=== PATIENT | male | born 1950 | race African-American/Black ===

== ENCOUNTER 2017-10-26 23:49 | Emergency (ER) | payer MEDICARE ==
[~2017-10-26] VITALS: Ht 175.3 cm; Wt 74.8 kg
[2017-10-27 00:07] LABS: BASOPHILS % 0.2 % (0.0-1.0); HEMATOCRIT 38.6 % (38.2-49.6); HEMOGLOBIN 13.3 g/dL (14.0-18.0); LYMPHOCYTES # (AUTO) 0.8 (1.0-3.2); LYMPHOCYTES % 6.2 % (18.0-39.1); MEAN CORPUSCULAR HEMOGLOBIN 28.1 pg (28-32); MEAN CORPUSCULAR HGB CONC 34.5 g/dL (31-35); MEAN CORPUSCULAR VOLUME 81.6 fL (81-99); MONOCYTES # (AUTO) 0.5 (0.2-0.8); MONOCYTES % 4.2 % (4.4-11.3); NEUTROPHILS # (AUTO) 11.2 (2.1-6.9); NEUTROPHILS % 89.1 % (38.7-80.0); PLATELET COUNT 297 x10e3/uL (140-360); RED BLOOD COUNT 4.73 x10e6/uL (4.3-5.7); RED CELL DISTRIBUTION WIDTH 14.2 % (11.7-14.4)
[2017-10-27] MEDS ORDERED: DIOVAN HCT 1601 EAC1 PO (00:13)
[2017-10-27] MEDS ORDERED: COREG12.5 MG PO (00:13)
[2017-10-27] MEDS ORDERED: NIFEDIPINE ER30 M1 PO (00:13)
[2017-10-27] MEDS ORDERED: SYNTHROID75 MCG PO (00:13)
[2017-10-27] MEDS ORDERED: CHLORDIAZEPOX-1 EACH PO (00:13)
[2017-10-27] MEDS ORDERED: PREVACID15 MG PO (00:13)
[2017-10-27 00:28] LABS: ALANINE AMINOTRANSFERASE 12 IU/L (0-55); ALBUMIN 3.7 g/dL (3.5-5.0); ALBUMIN/GLOBULIN RATIO 0.9 (0.8-2.0); ALKALINE PHOSPHATASE 70 IU/L (40-150); ANION GAP 14.3 mmol/L (8-16); BLOOD UREA NITROGEN 8 mg/dL (7-26); BUN/CREATININE RATIO 8 (6-25); CALCIUM 9.4 mg/dL (8.4-10.2); CARBON DIOXIDE 27 mmol/L (22-29); CHLORIDE 99 mmol/L (98-107); CREATININE, SERUM 0.99 mg/dL (0.72-1.25); EST GLOMERULAR FILTRATION RATE > 60 ML/MIN (60-); GLUCOSE 159 mg/dL (74-118); POTASSIUM 3.3 mmol/L (3.5-5.1); SODIUM 137 mmol/L (136-145)
--- NOTE | 2017-10-27 00:39 | Diagnostic Imaging Report ---
EXAMINATION: CHEST SINGLE (PORTABLE) INDICATION: Breathing problems, coughing COMPARISON: None FINDINGS: TUBES and LINES: None. LUNGS: Lungs are well inflated. Minimal left lower lobe retrocardiac opacity compatible with atelectasis versus pneumonia. PLEURA: No pleural effusion or pneumothorax. HEART AND MEDIASTINUM: The cardiomediastinal silhouette is unremarkable. BONES AND SOFT TISSUES: No acute osseous lesion. Soft tissues are unremarkable. UPPER ABDOMEN: No free air under the diaphragm. IMPRESSION: 1. Left lower lobe retrocardiac opacity is inconspicuous on single portable AP view. PA and lateral view of the chest in upright position is recommended 2. Differential diagnosis may include atelectasis or pneumonia. Signed by: Dr. Jarod Hsu M.D. on 10/27/2017 12:36 AM
[2017-10-27] MEDS ORDERED: POTASSIUM CHLORIDE 20 MEQ TAB CR PO STA (01:35)
[2017-10-27] MEDS ORDERED: ACETAMINOPHEN/CODEINE 300MG - 30MG TAB PO ONE (01:45)
--- NOTE | 2017-10-27 02:24 | Diagnostic Imaging Report ---
EXAM: CT Chest WITHOUT contrast 10/27/2017 1:25 AM INDICATION: Pneumonia COMPARISON: None TECHNIQUE: Chest was scanned utilizing a multidetector helical scanner from the lung apex through the level of the adrenal glands without administration of IV contrast. Absence of intravenous contrast decreases sensitivity for detection of lymphadenopathy and vascular pathology. Coronal and sagittal reformations were obtained. Routine protocol was performed. IV CONTRAST: None RADIATION DOSE: Total DLP: 477.65 mGy*cm Estimated effective dose: (DLP x 0.014 x size factor) mSv COMPLICATIONS: None FINDINGS: LINES/ TUBES: None. LUNGS AND AIRWAYS: There are bronchiectasis at the lung bases. Within the most posterior segment of the bilateral lower lobe some of the bronchiectasis are filled with fluid and result in obstructive pneumonitis which can be inflammatory or infectious. PLEURA: The pleural spaces are clear. HEART AND MEDIASTINUM: The thyroid gland is normal. No mediastinal, hilar or axillary lymphadenopathy. The heart is normal in size.. There is no pericardial effusion. UPPER ABDOMEN: Limited non-contrast views of the upper abdomen show no abnormality within the visualized liver, spleen, pancreas, or kidneys. The adrenal glands are normal. BONES: There are degenerative changes in the thoracic spine. SOFT TISSUES: Unremarkable. IMPRESSION: Findings in the bilateral lower lobes left greater than right are suspicious for dependent obstructive pneumonitis from lower lobe bronchiectasis. These findings can be inflammatory or infectious. Signed by: Dr. Jarod Hsu M.D. on 10/27/2017 2:21 AM
[2017-10-27] MEDS ORDERED: AZITHROMYCIN 500MG/NS 250 ML 250 ML IV STA (02:34)
[2017-10-27] MEDS ORDERED: CEFTRIAXONE SOD 1 GM VIAL IV SCH (02:45)
== END 2017-10-27 03:52 | disposition home or self-care (01) ==
LOC: ER 23:49
DX: R50.9 Fever, unspecified (principal); R05 Cough; J15.9 Unspecified bacterial pneumonia; F17.210 Nicotine dependence, cigarettes, uncomplicated
CPT/HCPCS: 36415; 71045; 71250; 80053; 83880; 85025; 85379; 99284; J0456; J0696

== ENCOUNTER 2018-02-18 18:55 | Emergency (ER) | payer MEDICARE ==
[~2018-02-18] VITALS: Ht 175.3 cm; Wt 71.7 kg
[~2018-02-18 18:55] MED LIST: CHLORDIAZEPOX-1 EACH PO; COREG12.5 MG PO; DIOVAN HCT 1601 EAC1 PO; NIFEDIPINE ER30 M1 PO; PREVACID15 MG PO; SYNTHROID75 MCG PO
--- OUTSIDE RECORDS SUMMARY | 2018-02-18 18:57 | XMS REPORT ---
Author Author [facility] Address Unknown Phone Unavailable Care Team Providers Care Ambulance Driver Name Role Phone Rashad CHANEL Unavailable Unavailable Problems This patient has no known problems. Allergies, Adverse Reactions, Alerts This patient has no known allergies or adverse reactions. Medications This patient has no known medications. Results Test Description Test Time Test Comments Text Results Atomic Results Result Comments CT CHEST WO 2017-10-27 02:19:00 [place] [address] Patient Name: LISSA TORRES II MR #: [id number] : 1950 Age/Sex: 66/M [id number] Req #: [id number] Adm Physician: Ordered by: DAMION CHANEL MD Report #: [id number] Location: ER Room/Bed: Procedure: [id number] CT/CT CHEST WO Exam Date: 10/27/17 Exam Time: 0144 REPORT STATUS: Signed EXAM: CT Chest WITHOUT contrast 10/27/2017 1:25 AM INDICATION: Pneumonia COMPARISON: None TECHNIQUE: Chest was scanned utilizing a multidetector helical scanner from the lung apex through the level of the adrenal glands without administration of IV contrast. Absence of intravenous contrast decreases sensitivity for detection of lymphadenopathy and vascular pathology. Coronal and sagittal reformations were obtained. Routine protocol was performed. IV CONTRAST: None RADIATION DOSE: Total DLP: 477.65 mGy*cm Estimated effective dose: (DLP x 0.014 x size factor) mSv COMPLICATIONS: None FINDINGS: LINES/ TUBES: None. LUNGS AND AIRWAYS: There are bronchiectasis at the lung bases. Within the most posterior segment of the bilateral lower lobe some of the bronchiectasis are filled with fluid and result in obstructive pneumonitis which can be inflammatory or infectious. PLEURA: The pleural spaces are clear. HEART AND MEDIASTINUM: The thyroid gland is normal. No mediastinal, hilar or axillary lymphadenopathy. The heart is normal in size.. There is no pericardial effusion. UPPER ABDOMEN: Limited non- contrast views of the upper abdomen show no abnormality within the visualized liver, spleen, pancreas, or kidneys. The adrenal glands are normal. BONES: There are degenerative changes in the thoracic spine. SOFT TISSUES: Unremarkable. IMPRESSION: Findings in the bilateral lower lobes left greater than right are suspicious for dependent obstructive pneumonitis from lower lobe bronchiectasis. These findings can be inflammatory or infectious. Signed by: Dr. Jarod Hsu M.D. on 10/27/2017 2:21 AM Dictated By: JAROD NOVOA MD 0 Transcribed By: MEGGAN on 10/27/17220 COPY TO: DAMION CHANEL MD CHEST SINGLE (PORTABLE) 2017-10-27 00:35:00 [place] [address] Patient Name: LISSA TORRES II MR #: [id number] : 1950 Age/Sex: 66/M Req #: [id number] Adm Physician: Ordered by: DAMION CHANEL MD Report #: [id number] Location: ER Room/Bed: Procedure: DX/CHEST SINGLE (PORTABLE) Exam Date: 10/27/17 Exam Time: 16 REPORT STATUS: Signed EXAMINATION: CHEST SINGLE (PORTABLE) INDICATION: Breathing problems, coughing COMPARISON: None FINDINGS: TUBES and LINES: None. LUNGS: Lungs are well inflated. Minimal left lower lobe retrocardiac opacity compatible with atelectasis versus pneumonia. PLEURA: No pleural effusion or pneumothorax. HEART AND MEDIASTINUM: The cardiomediastinal silhouette is unremarkable. BONES AND SOFT TISSUES: No acute osseous lesion. Soft tissues are unremarkable. UPPER ABDOMEN: No free air under the diaphragm. IMPRESSION: 1. Left lower lobe retrocardiac opacity is inconspicuous on single portable AP view. PA and lateral view of the chest in upright position is recommended 2. Differential diagnosis may include atelectasis or pneumonia. Signed by: Dr. Jarod Hsu M.D. on 10/27/2017 12:36 AM Dictated By: JAROD ESCUDERO MD Transcribed By: MEGGAN on 10/27/1735 COPY TO: DAMION CHANEL MD
[2018-02-18] MEDS ORDERED: SODIUM CHLORIDE 0.9% 1000ML 1,000 ML IV STA (19:15)
[2018-02-18] MEDS ORDERED: DIATRIZOATE MEGL/DIATRIZOA SOD 30 ML BTL PO ONE (19:22)
[2018-02-18 19:30] LABS: BASOPHILS % 0.4 % (0.0-1.0); EOSINOPHILS % 0.7 % (0.0-6.0); HEMATOCRIT 39.9 % (38.2-49.6); HEMOGLOBIN 13.3 g/dL (14.0-18.0); LYMPHOCYTES % 35.2 % (18.0-39.1); MEAN CORPUSCULAR HEMOGLOBIN 28.5 pg (28-32); MEAN CORPUSCULAR HGB CONC 33.3 g/dL (31-35); MEAN CORPUSCULAR VOLUME 85.4 fL (81-99); MONOCYTES # (AUTO) 0.4 (0.2-0.8); MONOCYTES % 6.7 % (4.4-11.3); NEUTROPHILS # (AUTO) 3.3 (2.1-6.9); NEUTROPHILS % 56.8 % (38.7-80.0); PLATELET COUNT 241 x10e3/uL (140-360); RED BLOOD COUNT 4.67 x10e6/uL (4.3-5.7); RED CELL DISTRIBUTION WIDTH 13.6 % (11.7-14.4)
[2018-02-18] MEDS ORDERED: MORPHINE SULFATE INJ 4 MG/ML INJ IV ONE (19:30)
[2018-02-18] MEDS ORDERED: ASPIRIN 81 MG CHEW TAB PO ONE (19:30)
[2018-02-18] MEDS ORDERED: ONDANSETRON HCL INJ 2 MG/ML VIAL IV ONE (19:30)
[2018-02-18 19:36] LABS: BILIRUBIN,URINE NEGATIVE (NEGATIVE); CLARITY,URINE SL CLOUDY (CLEAR); COLOR,URINE YELLOW (YELLOW); KETONES,URINE NEGATIVE (NEGATIVE); LEUKOCYTE ESTERASE ,URINE NEGATIVE (NEGATIVE); NITRITE,URINE NEGATIVE (NEGATIVE); PROTEIN,URINE DIPSTICK NEGATIVE (NEGATIVE); URINE UROBILINOGEN 0.2 mg/dL (0.2 - 1)
[2018-02-18 19:38] LABS: INR 0.91; PROTHROMBIN TIME 13.1 seconds (11.9-14.5)
[2018-02-18 19:39] LABS: PARTIAL THROMBOPLASTIN TIME 28.4 seconds (23.8-35.5)
[2018-02-18 19:44] LABS: BACTERIA,URINE RARE /HPF; EPITHELIAL CELLS,URINE RARE /LPF; RBC,URINE 0-5 /HPF (0-5)
[2018-02-18 19:49] LABS: ALANINE AMINOTRANSFERASE 12 IU/L (0-55); ALBUMIN 4.1 g/dL (3.5-5.0); ALBUMIN/GLOBULIN RATIO 1.6 (0.8-2.0); ALKALINE PHOSPHATASE 48 IU/L (40-150); AMYLASE 102 U/L (25-125); ANION GAP 10.1 mmol/L (8-16); BLOOD UREA NITROGEN 11 mg/dL (7-26); BUN/CREATININE RATIO 13 (6-25); CALCIUM 9.3 mg/dL (8.4-10.2); CARBON DIOXIDE 29 mmol/L (22-29); CHLORIDE 101 mmol/L (98-107); CREATINE KINASE 141 IU/L (30-200); CREATININE, SERUM 0.86 mg/dL (0.72-1.25); EST GLOMERULAR FILTRATION RATE > 60 ML/MIN (60-); GLUCOSE 105 mg/dL (74-118); LIPASE 34 U/L (8-78); POTASSIUM 4.1 mmol/L (3.5-5.1); SODIUM 136 mmol/L (136-145)
[2018-02-18 20:09] LABS: THYROID STIMULATING HORMONE 0.019 uIU/mL (0.350-4.940)
--- NOTE | 2018-02-18 20:51 | Diagnostic Imaging Report ---
EXAM: CT Abdomen and Pelvis WITH contrast INDICATION: Abdominal pain. Diverticulitis. COMPARISON: None. TECHNIQUE: Abdomen and pelvis were scanned utilizing a multidetector helical scanner from the lung base to the pubic symphysis after administration of IV contrast. Coronal and sagittal reformations were obtained. Routine protocol was performed. Scan was performed when during portal venous phase. IV CONTRAST: 100 cc Isovue-370. ORAL CONTRAST: Gastrografin and water mixture. RADIATION DOSE: Total DLP: 3. 2.67 mGy*cm Estimated effective dose: (DLP x 0.015 x size factor) mSv COMPLICATIONS: None FINDINGS: LINES and TUBES: None. LOWER THORAX: Unremarkable HEPATOBILIARY: No focal hepatic lesions. No biliary ductal dilation. GALLBLADDER: No radio-opaque stones or sludge. No wall thickening. SPLEEN: No splenomegaly. PANCREAS: No focal masses or ductal dilatation. ADRENALS: No adrenal nodules KIDNEYS/URETERS: Kidneys enhance symmetrically. No hydronephrosis. No cystic or solid mass lesions. No stones. GI TRACT: No small bowel dilatation to suggest obstruction. There is mild wall thickening of the rectum which is nonspecific and could be in part related to underdistention, however, cannot exclude mild proctitis. A few scattered colonic diverticula without diverticulitis. Appendix is normal. PELVIC ORGANS/BLADDER: Unremarkable. LYMPH NODES: No lymphadenopathy. VESSELS: There is mild atherosclerotic disease in the aorta and major arterial branches. PERITONEUM / RETROPERITONEUM: No free air or fluid. BONES: Minimal spondylosis of the thoracic spine and lower lumbar facet joints. No acute osseous abnormality. SOFT TISSUES: Mild soft tissue thickening in the left inguinal canal is nonspecific. IMPRESSION: 1. Mild wall thickening of the rectum is nonspecific, possibly inflammatory in etiology, otherwise no acute abnormality. Signed by: Dr. Manuel Velazco M.D. on 02/18/2018 8:47 PM
[2018-02-18] MEDS ORDERED: SODIUM CHLORIDE 0.9% 50ML 50 ML ONE (22:13)
[2018-02-18] MEDS ORDERED: IOPAMIDOL 370 MG/ML 200 ML INFUS..BTL INJ ONE (22:14)
== END 2018-02-18 22:40 | disposition home or self-care (01) ==
LOC: ER 18:55
DX: R10.13 Epigastric pain (principal); R10.84 Generalized abdominal pain; R63.4 Abnormal weight loss
CPT/HCPCS: 36415; 74177; 80053; 81001; 82150; 82550; 82553; 83690; 83880; 84443; 84484; 85025; 85610; 85730; 87086; 99284; Q9967

== ENCOUNTER 2019-10-14 06:33 | Emergency (ER) | payer MEDICARE ==
[~2019-10-14] VITALS: Ht 175.3 cm; Wt 72.6 kg
[2019-10-14] MEDS ORDERED: SODIUM CHLORIDE 0.9% 1000ML 1,000 ML IV STA (06:45)
[2019-10-14] MEDS ORDERED: MORPHINE SULFATE INJ 4 MG/ML INJ 1ML IV PRN (06:45)
[2019-10-14 07:00] LABS: BASOPHILS % 0.4 % (0.0-1.0); EOSINOPHILS # (AUTO) 0.1 (0.0-0.4); EOSINOPHILS % 0.9 % (0.0-6.0); HEMOGLOBIN 11.5 g/dL (14.0-18.0); LYMPHOCYTES # (AUTO) 2.5 (1.0-3.2); LYMPHOCYTES % 27.6 % (18.0-39.1); MEAN CORPUSCULAR HEMOGLOBIN 28.4 pg (28-32); MEAN CORPUSCULAR HGB CONC 32.9 g/dL (31-35); MEAN CORPUSCULAR VOLUME 86.4 fL (81-99); MONOCYTES # (AUTO) 0.5 (0.2-0.8); MONOCYTES % 5.8 % (4.4-11.3); NEUTROPHILS % 64.9 % (38.7-80.0); PLATELET COUNT 277 x10e3/uL (140-360); RED BLOOD COUNT 4.05 x10e6/uL (4.3-5.7); RED CELL DISTRIBUTION WIDTH 16.6 % (11.7-14.4)
--- NOTE | 2019-10-14 07:03 | NUR ---
REPORT GIVEN TO MIGUEL PELAYO
[2019-10-14 07:10] LABS: AMPHETAMINES SCREEN,URINE NEGATIVE (NEGATIVE); BENZODIAZEPINES SCREEN,URINE NEGATIVE (NEGATIVE); BILIRUBIN,URINE NEGATIVE (NEGATIVE); CLARITY,URINE CLEAR (CLEAR); COLOR,URINE YELLOW (YELLOW); KETONES,URINE NEGATIVE (NEGATIVE); LEUKOCYTE ESTERASE ,URINE NEGATIVE (NEGATIVE); NITRITE,URINE NEGATIVE (NEGATIVE); PHENCYCLIDINE SCREEN,URINE NEGATIVE (NEGATIVE); PROTEIN,URINE DIPSTICK NEGATIVE (NEGATIVE); URINE UROBILINOGEN 0.2 mg/dL (0.2 - 1)
[2019-10-14 07:20] LABS: WBC,URINE (MAN) 0-5 /HPF (0-5)
[2019-10-14 07:21] LABS: ALANINE AMINOTRANSFERASE 9 IU/L (0-55); ALBUMIN 3.8 g/dL (3.5-5.0); ALBUMIN/GLOBULIN RATIO 1.1 (0.8-2.0); ALKALINE PHOSPHATASE 46 IU/L (40-150); BACTERIA,URINE RARE /HPF; BLOOD UREA NITROGEN 9 mg/dL (7-26); BUN/CREATININE RATIO 9 (6-25); CALCIUM 8.8 mg/dL (8.4-10.2); CARBON DIOXIDE 28 mmol/L (22-29); CHLORIDE 97 mmol/L (98-107); CREATINE KINASE 592 IU/L (30-200); CREATININE, SERUM 1.01 mg/dL (0.72-1.25); EPITHELIAL CELLS,URINE RARE /LPF; EST GLOMERULAR FILTRATION RATE > 60 ML/MIN (60-); GLUCOSE 100 mg/dL (74-118); RBC,URINE 21-50 /HPF (0-5); SODIUM 135 mmol/L (136-145)
[2019-10-14] MEDS ORDERED: SODIUM CHLORIDE 0.9% 50ML 50 ML ONE (07:51)
[2019-10-14] MEDS ORDERED: IOPAMIDOL 370 MG/ML 200 ML INFUS..BTL INJ ONE (07:52)
--- NOTE | 2019-10-14 09:08 | Emergency Department Note ---
History of Present Illnes History of Present Illness Chief Complaint: Abdominal Complaints History of Present Illness This is a 68 year old male arrives the ED with 1 day history of left lower quadrant abdominal pain, denies any nausea or vomiting. Denies any dysuria hematuria. Patient states the pain wraps around his back to his front.. Historian: Patient Arrival Mode: Car Onset (how long ago): hour(s) Radiation: Reports back Severity: mild Duration (how long): day(s) Timing of current episode: constant Progression: unchanged Chronicity: new Relieving factors: none Exacerbating factors: none Past Medical/Family History Physician Review I have reviewed the patient's past medical and family history. Any updates have been documented here. Past Medical History Recent Fever: No Clinical Suspicion of Infectio: No New/Unexplained Change in Ment: No Past Medical History: Hypertension, Hypothyroidism Other Medical History: HIATAL HERNIA IBS Other Surgery: R INDEX FINGER PARTIAL AMPUTATION Sinus sx Social History Smoking Cessation: Former smoker Counseling Performed: No Alcohol Use: None Any Illegal Drug Use: Yes TB Exposure/Symptoms: No Physically hurt or threatened: No Other Last Tetanus: UTD Any Pre-Existing Lines (PICC,: No Is patient up to date on immun: No Last Flu: not utd Last Pneumovax: utd Review of Systems Review of Systems Constitutional: Reports no symptoms EENTM: Reports no symptoms Cardiovascular: Reports no symptoms Respiratory: Reports no symptoms Gastrointestinal: Reports abdominal pain; Denies constipation, Denies diarrhea, Denies nausea, Denies vomiting Genitourinary: Reports no symptoms Musculoskeletal: Reports no symptoms Integumentary: Reports no symptoms Neurological: Reports no symptoms Psychological: Reports no symptoms Endocrine: Reports no symptoms Hematological/Lymphatic: Reports no symptoms Physical Exam Related Data Allergies: Coded Allergies: No Known Allergies (Unverified , 10/26/17) Triage Vital Signs Vital Signs Date Time Temp Pulse Resp B/P (MAP) Pulse Ox O2 Delivery O2 Flow Rate FiO2 10/14/19 06:35 98.9 91 18 192/120 99 Vital signs reviewed: Yes Physical Exam CONSTITUTIONAL Constitutional: Present well-developed, Present well-nourished HENT HENT: Present normocephalic, Present atraumatic, Present oropharynx clear/moist, Present nose normal HENT L/R: Present left ext ear normal, Present right ext ear normal EYES Eyes: Reports PERRL, Reports conjunctivae normal NECK Neck: Present ROM normal PULMONARY Pulmonary: Present effort normal, Present breath sounds normal CARDIOVASCULAR Cardiovascular: Present regular rhythm, Present heart sounds normal, Present capillary refill normal, Present normal rate GASTROINTESTINAL Abdominal: Present soft, Present bowel sounds normal, Present tender, Present left CVA tenderness; Absent guarding, Absent mass, Absent rebound GENITOURINARY Genitourinary: Present exam deferred SKIN Skin: Present warm, Present dry MUSCULOSKELETAL Musculoskeletal: Present ROM normal NEUROLOGICAL Neurological: Present alert, Present oriented x 3, Present no gross motor or sensory deficits PSYCHOLOGICAL Psychological: Present mood/affect normal, Present judgement normal Results Laboratory Result Diagram: 10/14/19 0645 10/14/19 0645 Laboratory Laboratory Tests Test 10/14/19 06:45 White Blood Count 9.21 x10e3/uL (4.8-10.8) Red Blood Count 4.05 x10e6/uL (4.3-5.7) Hemoglobin 11.5 g/dL (14.0-18.0) Hematocrit 35.0 % (38.2-49.6) Mean Corpuscular Volume 86.4 fL (81-99) Mean Corpuscular Hemoglobin 28.4 pg (28-32) Mean Corpuscular Hemoglobin Concent 32.9 g/dL (31-35) Red Cell Distribution Width 16.6 % (11.7-14.4) Platelet Count 277 x10e3/uL (140-360) Neutrophils (%) (Auto) 64.9 % (38.7-80.0) Lymphocytes (%) (Auto) 27.6 % (18.0-39.1) Monocytes (%) (Auto) 5.8 % (4.4-11.3) Eosinophils (%) (Auto) 0.9 % (0.0-6.0) Basophils (%) (Auto) 0.4 % (0.0-1.0) Neutrophils # (Auto) 6.0 (2.1-6.9) Lymphocytes # (Auto) 2.5 (1.0-3.2) Monocytes # (Auto) 0.5 (0.2-0.8) Eosinophils # (Auto) 0.1 (0.0-0.4) Basophils # (Auto) 0.0 (0.0-0.1) Absolute Immature Granulocyte (auto 0.04 x10e3/uL (0-0.1) Urine Color Yellow (YELLOW) Urine Clarity Clear (CLEAR) Urine pH 7 (5 - 7) Urine Specific [place] 1.025 (1.010-1.025) Urine Protein Negative (NEGATIVE) Urine Glucose (UA) Negative (NEGATIVE) Urine Ketones Negative (NEGATIVE) Urine Blood Moderate (NEGATIVE) Urine Nitrite Negative (NEGATIVE) Urine Bilirubin Negative (NEGATIVE) Urine Urobilinogen 0.2 mg/dL (0.2 - 1) Urine Leukocyte Esterase Negative (NEGATIVE) Urine RBC 21-50 /HPF (0-5) Urine WBC 0-5 /HPF (0-5) Urine Epithelial Cells Rare /LPF (NONE) Urine Bacteria Rare /HPF (NONE) Sodium Level 135 mmol/L (136-145) Potassium Level 4.0 mmol/L (3.5-5.1) Chloride Level 97 mmol/L (98-107) Carbon Dioxide Level 28 mmol/L (22-29) Anion Gap 14.0 mmol/L (8-16) Blood Urea Nitrogen 9 mg/dL (7-26) Creatinine 1.01 mg/dL (0.72-1.25) Estimat Glomerular Filtration Rate > 60 ML/MIN (60-) BUN/Creatinine Ratio 9 (6-25) Glucose Level 100 mg/dL (74-118) Calcium Level 8.8 mg/dL (8.4-10.2) Total Bilirubin 0.4 mg/dL (0.2-1.2) Aspartate Amino Transf (AST/SGOT) 17 IU/L (5-34) Alanine Aminotransferase (ALT/SGPT) 9 IU/L (0-55) Alkaline Phosphatase 46 IU/L (40-150) Creatine Kinase 592 IU/L (30-200) Creatine Kinase MB 3.30 ng/mL (0-5.0) Troponin I 0.019 ng/mL (0-0.300) Total Protein 7.3 g/dL (6.5-8.1) Albumin 3.8 g/dL (3.5-5.0) Globulin 3.5 g/dL (2.3-3.5) Albumin/Globulin Ratio 1.1 (0.8-2.0) Lipase 29 U/L (8-78) Urine Opiates Screen Negative (NEGATIVE) Urine Methadone Screen Negative (NEGATIVE) Urine Barbiturates Screen Negative (NEGATIVE) Urine Phencyclidine Screen Negative (NEGATIVE) Urine Amphetamines Screen Negative (NEGATIVE) Urine Methamphetamines Screen Negative (NEGATIVE) Urine Benzodiazepines Screen Negative (NEGATIVE) Urine Cocaine Screen Positive (NEGATIVE) Urine Cannabinoids Screen Negative (NEGATIVE) Assessment & Plan Medical Decision Making MDM 68-year-old male arrived to the ED with marked hypertension, states about taking his blood pressure medications. Patient also complaining of left lower quadrant and left flank pain. Patient's blood work unremarkable, mild rbc's noted in the urine. Patient received a CT scan of his abdomen and pelvis to rule out any intra-abdominal surgical pathology. CT abdomen and pelvis was unremarkable. Patient's urine drug screen tested positive for cocaine. Spoke to patient at length about concerns of cocaine-related ischemia and vasospasms. Patient expr essed understanding. Assessment & Plan Final Impression: (1) Abdominal pain (2) Cocaine abuse Depart Disposition: HOME, SELF-CARE Last Vital Signs Date Time Temp Pulse Resp B/P (MAP) Pulse Ox O2 Delivery O2 Flow Rate FiO2 10/14/19 07:35 77 18 159/110 100 10/14/19 06:35 98.9 Home Meds Reported Medications Carvedilol (COREG) 12.5 Mg Tab, 25 MG PO DAILY 10/27/17 Lansoprazole* (PREVACID*) 15 Mg Capcr, 15 MG PO BID THERAPEUTIC INTERCHANGE WITH PROTONIX PER [facility] 10/27/17 Nifedipine (NIFEDIPINE ER) 30 Mg Tab.er.24, 60 MG PO DAILY 10/27/17 Amitrip Hcl/Chlordiazepoxide (CHLORDIAZEPOX-AMITRIPTYL 10-25) 1 Each Tablet, 1 TAB PO HS 10/27/17 Levothyroxine Sodium (SYNTHROID) 75 Mcg Tab, 150 MCG PO DAILY, #30 TAB 10/27/17 Valsartan/Hydrochlorothiazide (DIOVAN HCT 160-25 MG TABLET) 1 Each Tablet, 1 TAB PO DAILY 10/27/17 Medications in the ED Sodium Chloride 1,000 ml @ 0 mls/hr Q0M STAT IV Last administered on 10/14/19at 07:25; Admin Dose 999 MLS/HR; Start 10/14/19 at 06:45; Stop 10/14/19 at 06:48; Status DC Morphine Sulfate 6 mg ONCE PRN IV SEVERE PAIN (7-10) Last administered on 10/14/19at 07:27; Admin Dose 6 MG; Start 10/14/19 at 06:45; Stop 10/21/19 at 06:44 Sodium Chloride 50 ml @ ud STK-MED ONCE .ROUTE ; Start 10/14/19 at 07:51; Stop 10/14/19 at 07:46; Status DC Iopamidol 74,000 mg STK-MED ONCE INJ ; Start 10/14/19 at 07:52; Stop 10/14/19 at 07:46; Status DC DAMION SCOTT DO Oct 14, 2019 09:08
--- NOTE | 2019-10-14 09:28 | Diagnostic Imaging Report ---
EXAM: CT Abdomen and Pelvis WITH intravenous contrast INDICATION: Abdominal pain COMPARISON: CT abdomen and pelvis of 02/18/2018 TECHNIQUE: Abdomen and pelvis were scanned utilizing a multidetector helical scanner from the lung base to the pubic symphysis after administration of IV contrast. Coronal and sagittal reformations were obtained. Routine protocol was performed. Scan was performed during portal venous phase. IV CONTRAST: 100mL of Isovue 370 ORAL CONTRAST: None RADIATION DOSE: Total DLP: 215 mGy*cm Dose modulation, iterative reconstruction, and/or weight based adjustment of the mA/kV was utilized to reduce the radiation dose to as low as reasonably achievable. FINDINGS: LOWER THORAX: Normal. HEPATOBILIARY: Diffuse hepatic steatosis. No focal liver lesion. Gallbladder not visualized. SPLEEN: No splenomegaly. PANCREAS: No focal masses or ductal dilatation. ADRENALS: No adrenal nodules. KIDNEYS/URETERS: No hydronephrosis, stones, or solid mass lesions. PELVIC ORGANS/BLADDER: The prostate is enlarged, measuring up to 5.3 cm. PERITONEUM / RETROPERITONEUM: No free air or fluid. LYMPH NODES: No lymphadenopathy. VESSELS: Scattered atherosclerotic calcifications of the nonaneurysmal abdominal aorta and major branches. GI TRACT: No abnormal bowel thickening. No bowel obstruction. Increased stool burden in the right colon. Appendix not well visualized. No inflammatory changes in the right lower quadrant to suggest appendicitis. BONES AND SOFT TISSUES: No acute osseous injury. No suspicious lytic or blastic lesions. IMPRESSION: No acute findings in the abdomen or pelvis. Diffuse hepatic steatosis. Signed by: Cristina Guerin MD on 10/14/2019 9:25 AM
[2019-10-14 09:54] VITALS: BP 155/110
== END 2019-10-14 10:16 | disposition home or self-care (01) ==
LOC: ER 06:33
DX: R10.32 Left lower quadrant pain (principal); F14.10 Cocaine abuse, uncomplicated; I10 Essential (primary) hypertension; E03.9 Hypothyroidism, unspecified
CPT/HCPCS: 36415; 74177; 80053; 80307; 81001; 82550; 82553; 83690; 84484; 85025; 99284; J2270; J7030; Q9967

== ENCOUNTER 2020-07-06 12:34 | Inpatient (IN) | payer MEDICARE ==
[~2020-07-06] VITALS: Ht 175.3 cm; Wt 78.9 kg
[2020-07-06] MEDS ORDERED: FUROSEMIDE INJ 10 MG/ML 4 ML VIAL IV ONE (13:00)
[2020-07-06 13:34] LABS: BASOPHILS % 0.6 % (0.0-1.0); EOSINOPHILS % 0.8 % (0.0-6.0); HEMATOCRIT 33.6 % (38.2-49.6); HEMOGLOBIN 11.1 g/dL (14.0-18.0); LYMPHOCYTES # (AUTO) 1.4 (1.0-3.2); LYMPHOCYTES % 28.6 % (18.0-39.1); MEAN CORPUSCULAR HEMOGLOBIN 29.3 pg (28-32); MEAN CORPUSCULAR VOLUME 88.7 fL (81-99); MONOCYTES # (AUTO) 0.3 (0.2-0.8); MONOCYTES % 5.8 % (4.4-11.3); NEUTROPHILS # (AUTO) 3.1 (2.1-6.9); NEUTROPHILS % 63.8 % (38.7-80.0); PLATELET COUNT 275 x10e3/uL (140-360); RED BLOOD COUNT 3.79 x10e6/uL (4.3-5.7); RED CELL DISTRIBUTION WIDTH 17.4 % (11.7-14.4)
[2020-07-06 13:53] LABS: ALBUMIN/GLOBULIN RATIO 1.3 (0.8-2.0); ANION GAP 10.6 mmol/L (8-16); CALCIUM 8.2 mg/dL (8.4-10.2); CREATININE, SERUM 1.46 mg/dL (0.72-1.25); POTASSIUM 3.6 mmol/L (3.5-5.1)
[2020-07-06 14:01] LABS: CREATINE KINASE MB 20.1 ng/mL (0-5.0)
[2020-07-06] MEDS ORDERED: SODIUM CHLORIDE 0.9% 50ML 50 ML ONE (14:25)
[2020-07-06] MEDS ORDERED: IOPAMIDOL 370 MG/ML 200 ML INFUS..BTL INJ ONE (14:25)
[2020-07-06] MEDS ORDERED: SODIUM CHLORIDE 0.9% 1000ML 1,000 ML IV STA (14:31)
[2020-07-06 14:37] LABS: CLARITY,URINE CLEAR (CLEAR); COLOR,URINE YELLOW (YELLOW)
[2020-07-06 14:38] LABS: AMPHETAMINES SCREEN,URINE NEGATIVE (NEGATIVE); KETONES,URINE NEGATIVE (NEGATIVE); LEUKOCYTE ESTERASE ,URINE NEGATIVE (NEGATIVE); NITRITE,URINE NEGATIVE (NEGATIVE); PHENCYCLIDINE SCREEN,URINE NEGATIVE (NEGATIVE); PROTEIN,URINE DIPSTICK NEGATIVE (NEGATIVE)
[2020-07-06 14:39] LABS: BENZODIAZEPINES SCREEN,URINE NEGATIVE (NEGATIVE); URINE UROBILINOGEN 0.2 mg/dL (0.2 - 1)
[2020-07-06 14:47] LABS: BACTERIA,URINE RARE /HPF; EPITHELIAL CELLS,URINE FEW /LPF
[2020-07-06 15:33] LABS: INR 1.04; PROTHROMBIN TIME 14.2 seconds (11.9-14.5)
[2020-07-06] MEDS ORDERED: ALBUMIN 25% 12.5GM 50ML 150 ML IV ONE (15:53)
[2020-07-06] MEDS ORDERED: ALBUMIN 25% 12.5GM 50ML 50 ML IV ONE (16:55)
[2020-07-06 17:36] VITALS: BP 178/99
[2020-07-06 17:40] VITALS: BP 178/99
[2020-07-06 18:41] LABS: BODY FLUID APPEARANCE SL.CLOUDY; BODY FLUID COLOR YELLOW; BODY FLUID TYPE PERITONEAL
[2020-07-06 18:42] LABS: RBC,BODY FLUID 58 cells/uL; WBC,BODY FLUID 69 cells/uL
[2020-07-06] MEDS ORDERED: NIFEDIPINE CR 30 MG TAB PO SCH (18:45)
[2020-07-06] MEDS: CARVEDILOL 12.5 MG TAB PO SCH (19:34)
[2020-07-06 20:20] VITALS: BP 159/95
[2020-07-06 21:31] LABS: LYMPHOCYTES,BODY FLUID 10 %; NEUTROPHILS,BODY FLUID 56 %
[2020-07-06 21:32] LABS: MONO/MACROPHG,BODY FLUID 30 %; OTHER CELLS,BODY FLUID 4 %
[2020-07-06] MEDS ORDERED: HYDRALAZINE HCL 20 MG/ML VIAL IV PRN (23:45)
[2020-07-07] MEDS ORDERED: LEVOTHYROXINE SODIUM 125 MCG TAB PO SCH (06:00)
[2020-07-07 06:11] LABS: BASOPHILS % 0.7 % (0.0-1.0); EOSINOPHILS # (AUTO) 0.1 (0.0-0.4); EOSINOPHILS % 1.2 % (0.0-6.0); HEMOGLOBIN 10.6 g/dL (14.0-18.0); LYMPHOCYTES # (AUTO) 1.7 (1.0-3.2); LYMPHOCYTES % 29.7 % (18.0-39.1); MEAN CORPUSCULAR HEMOGLOBIN 29.6 pg (28-32); MEAN CORPUSCULAR HGB CONC 33.1 g/dL (31-35); MEAN CORPUSCULAR VOLUME 89.4 fL (81-99); MONOCYTES # (AUTO) 0.3 (0.2-0.8); MONOCYTES % 5.4 % (4.4-11.3); NEUTROPHILS # (AUTO) 3.6 (2.1-6.9); NEUTROPHILS % 62.7 % (38.7-80.0); PLATELET COUNT 243 x10e3/uL (140-360); RED BLOOD COUNT 3.58 x10e6/uL (4.3-5.7); RED CELL DISTRIBUTION WIDTH 17.2 % (11.7-14.4)
[2020-07-07 06:28] LABS: CALCIUM IONIZED 1.1 mmol/L (1.09-1.30)
[2020-07-07 06:53] LABS: ALANINE AMINOTRANSFERASE 48 IU/L (0-55); ALBUMIN 3.4 g/dL (3.5-5.0); ALBUMIN/GLOBULIN RATIO 1.5 (0.8-2.0); ALKALINE PHOSPHATASE 40 IU/L (40-150); ANION GAP 10.4 mmol/L (8-16); BLOOD UREA NITROGEN 15 mg/dL (7-26); BUN/CREATININE RATIO 11 (6-25); CALCIUM 7.4 mg/dL (8.4-10.2); CARBON DIOXIDE 29 mmol/L (22-29); CHLORIDE 100 mmol/L (98-107); CREATININE, SERUM 1.37 mg/dL (0.72-1.25); EST GLOMERULAR FILTRATION RATE > 60 ML/MIN (60-); GLUCOSE 85 mg/dL (74-118); POTASSIUM 3.4 mmol/L (3.5-5.1); SODIUM 136 mmol/L (136-145)
[2020-07-07 07:12] LABS: MAGNESIUM 1.8 MG/DL (1.3-2.1)
[2020-07-07 08:27] VITALS: BP 98/74
[2020-07-07 08:34] VITALS: BP 98/74
[2020-07-07] MEDS ORDERED: PANTOPRAZOLE SOD 40 MG TABEC PO SCH (09:00)
[2020-07-07] MEDS ORDERED: POTASSIUM CHLORIDE 10MEQ EA PO NR (10:00)
[2020-07-07] MEDS ORDERED: ONDANSETRON HCL 4 MG ORAL DISINTEGRATING TAB PO PRN (10:00)
[2020-07-07] MEDS: PANTOPRAZOLE SOD 40 MG TABEC PO SCH (12:40)
[2020-07-07] MEDS: CARVEDILOL 12.5 MG TAB PO SCH ×2 (12:41→18:24)
[2020-07-07] MEDS: FUROSEMIDE 40 MG TAB PO SCH (12:44)
[2020-07-07] MEDS: METRONIDAZOLE 500 MG TAB PO SCH ×4 (12:52→21:21)
[2020-07-07] MEDS: LEVOTHYROXINE SODIUM 88 MCG TAB PO SCH (12:52)
[2020-07-07 12:53] VITALS: BP 112/87
[2020-07-07] MEDS: CIPROFLOXACIN 500 MG TAB PO SCH ×2 (12:56→18:23)
[2020-07-07 16:55] VITALS: BP 111/73
[2020-07-07] MEDS: SPIRONOLACTONE 25 MG TAB PO SCH (18:24)
[2020-07-07 20:00] VITALS: BP 106/73
[2020-07-08 00:02] VITALS: BP 108/77
[2020-07-08] MEDS: LEVOTHYROXINE SODIUM 88 MCG TAB PO SCH (06:01)
[2020-07-08] MEDS: METRONIDAZOLE 500 MG TAB PO SCH ×3 (06:28→22:57)
[2020-07-08 06:29] LABS: ANION GAP 11.7 mmol/L (8-16); BLOOD UREA NITROGEN 18 mg/dL (7-26); BUN/CREATININE RATIO 14 (6-25); CALCIUM 7.7 mg/dL (8.4-10.2); CARBON DIOXIDE 28 mmol/L (22-29); CHLORIDE 98 mmol/L (98-107); CREATININE, SERUM 1.33 mg/dL (0.72-1.25); EST GLOMERULAR FILTRATION RATE > 60 ML/MIN (60-); GLUCOSE 84 mg/dL (74-118); POTASSIUM 3.7 mmol/L (3.5-5.1); SODIUM 134 mmol/L (136-145)
[2020-07-08 08:05] VITALS: BP 108/77
[2020-07-08 08:31] VITALS: BP 113/75
[2020-07-08] MEDS: CIPROFLOXACIN 500 MG TAB PO SCH ×2 (09:36→19:21)
[2020-07-08] MEDS: SPIRONOLACTONE 25 MG TAB PO SCH ×2 (09:36→19:21)
[2020-07-08] MEDS: PANTOPRAZOLE SOD 40 MG TABEC PO SCH (09:36)
[2020-07-08] MEDS: CARVEDILOL 12.5 MG TAB PO SCH ×2 (09:37→19:22)
[2020-07-08] MEDS: FUROSEMIDE 40 MG TAB PO SCH (09:38)
[2020-07-08 11:51] VITALS: BP 96/71
[2020-07-08 16:21] VITALS: BP 126/80
[2020-07-08 20:00] VITALS: BP 125/89
[2020-07-09] VITALS (8 sets, daily range): BP systolic 105–138; BP diastolic 69–99
[2020-07-09] MEDS: METRONIDAZOLE 500 MG TAB PO SCH ×3 (05:05→22:00)
[2020-07-09] MEDS: LEVOTHYROXINE SODIUM 88 MCG TAB PO SCH (05:05)
[2020-07-09] MEDS: SPIRONOLACTONE 25 MG TAB PO SCH ×2 (09:57→17:20)
[2020-07-09] MEDS: CIPROFLOXACIN 500 MG TAB PO SCH ×2 (09:57→17:20)
[2020-07-09] MEDS: CARVEDILOL 12.5 MG TAB PO SCH ×2 (09:58→17:00)
[2020-07-09] MEDS: FUROSEMIDE 40 MG TAB PO SCH (09:58)
[2020-07-09] MEDS: PANTOPRAZOLE SOD 40 MG TABEC PO SCH (09:58)
[2020-07-09] MEDS ORDERED: ONDANSETRON HCL INJ 2MG/ML 2ML 2 MG/ML VIAL IV PRN (15:30)
[2020-07-09] MEDS ORDERED: LIDOCAINE 4% PATCH TP PRN (15:30)
[2020-07-09] MEDS ORDERED: BENZONATATE 100 MG CAP PO PRN (15:30)
[2020-07-09] MEDS ORDERED: MELATONIN 5 MG TABLET PO PRN (15:30)
[2020-07-09] MEDS ORDERED: HYDRALAZINE HCL 20 MG/ML VIAL IV PRN (15:30)
[2020-07-09] MEDS ORDERED: DEXTROSE 50% SYRINGE 50 ML IV PRN (15:30)
[2020-07-09] MEDS ORDERED: DOCUSATE SODIUM 100 MG CAP PO PRN (15:30)
[2020-07-09] MEDS ORDERED: ACETAMINOPHEN 325 MG TAB PO PRN (15:30)
[2020-07-09] MEDS ORDERED: DIPHENHYDRAMINE HCL 25 MG CAP PO PRN (15:30)
[2020-07-09] MEDS: ENOXAPARIN SOD INJ 40 MG/0.4 ML SYR SC SCH (17:21)
[2020-07-10] VITALS (10 sets, daily range): BP systolic 114–135; BP diastolic 69–97
[2020-07-10] MEDS: METRONIDAZOLE 500 MG TAB PO SCH ×3 (05:53→22:22)
[2020-07-10] MEDS: LEVOTHYROXINE SODIUM 88 MCG TAB PO SCH (05:54)
[2020-07-10 06:04] LABS: ALBUMIN 3.5 g/dL (3.5-5.0); ALBUMIN/GLOBULIN RATIO 1.3 (0.8-2.0); ANION GAP 11.9 mmol/L (8-16); CALCIUM 7.7 mg/dL (8.4-10.2); CREATININE, SERUM 1.5 mg/dL (0.72-1.25); POTASSIUM 3.9 mmol/L (3.5-5.1)
[2020-07-10] MEDS ORDERED: PANTOPRAZOLE SOD 40 MG TABEC PO SCH (07:30)
[2020-07-10] MEDS ORDERED: ALBUMIN 25% 12.5GM 50ML 150 ML IV ONE (11:09)
[2020-07-10] MEDS: FUROSEMIDE 40 MG TAB PO SCH (13:30)
[2020-07-10] MEDS: SPIRONOLACTONE 25 MG TAB PO SCH ×2 (13:30→18:27)
[2020-07-10] MEDS: CARVEDILOL 12.5 MG TAB PO SCH ×2 (13:30→18:27)
[2020-07-10] MEDS: PANTOPRAZOLE SOD 40 MG TABEC PO SCH (13:30)
[2020-07-10] MEDS: CIPROFLOXACIN 500 MG TAB PO SCH ×2 (13:30→16:46)
[2020-07-10 14:42] LABS: BODY FLUID TYPE PERITONEAL
[2020-07-10 14:43] LABS: BODY FLUID APPEARANCE CLEAR; BODY FLUID COLOR YELLOW
[2020-07-10 14:50] LABS: RBC,BODY FLUID 47 cells/uL; WBC,BODY FLUID 87 cells/uL
[2020-07-10 15:15] LABS: LYMPHOCYTES,BODY FLUID 68 %; MONO/MACROPHG,BODY FLUID 9 %; NEUTROPHILS,BODY FLUID 15 %; OTHER CELLS,BODY FLUID 8 %
[2020-07-10] MEDS: ENOXAPARIN SOD INJ 40 MG/0.4 ML SYR SC SCH (16:46)
[2020-07-11] VITALS (7 sets, daily range): BP systolic 95–127; BP diastolic 70–83
[2020-07-11] MEDS: LEVOTHYROXINE SODIUM 88 MCG TAB PO SCH (05:00)
[2020-07-11] MEDS: METRONIDAZOLE 500 MG TAB PO SCH ×3 (06:20→21:43)
[2020-07-11 07:36] LABS: ALBUMIN 3.9 g/dL (3.5-5.0); ALBUMIN/GLOBULIN RATIO 1.6 (0.8-2.0); ANION GAP 14.9 mmol/L (8-16); CALCIUM 7.9 mg/dL (8.4-10.2); CREATININE, SERUM 1.48 mg/dL (0.72-1.25); POTASSIUM 3.9 mmol/L (3.5-5.1)
[2020-07-11] MEDS: PANTOPRAZOLE SOD 40 MG TABEC PO SCH (08:30)
[2020-07-11] MEDS: SPIRONOLACTONE 25 MG TAB PO SCH ×2 (09:02→16:24)
[2020-07-11] MEDS: CARVEDILOL 12.5 MG TAB PO SCH ×2 (09:02→16:24)
[2020-07-11] MEDS: FUROSEMIDE 40 MG TAB PO SCH (09:02)
[2020-07-11] MEDS: CIPROFLOXACIN 500 MG TAB PO SCH ×2 (09:02→16:24)
[2020-07-11] MEDS: ENOXAPARIN SOD INJ 40 MG/0.4 ML SYR SC SCH (16:24)
[2020-07-12] VITALS (7 sets, daily range): BP systolic 108–114; BP diastolic 72–77
[2020-07-12] MEDS: LEVOTHYROXINE SODIUM 88 MCG TAB PO SCH (05:19)
[2020-07-12] MEDS: METRONIDAZOLE 500 MG TAB PO SCH ×3 (05:19→22:00)
[2020-07-12 05:41] LABS: BASOPHILS % 0.6 % (0.0-1.0); EOSINOPHILS # (AUTO) 0.1 (0.0-0.4); HEMATOCRIT 33.1 % (38.2-49.6); LYMPHOCYTES # (AUTO) 2.2 (1.0-3.2); LYMPHOCYTES % 41.8 % (18.0-39.1); MEAN CORPUSCULAR HEMOGLOBIN 29.2 pg (28-32); MEAN CORPUSCULAR HGB CONC 33.2 g/dL (31-35); MEAN CORPUSCULAR VOLUME 87.8 fL (81-99); MONOCYTES # (AUTO) 0.3 (0.2-0.8); MONOCYTES % 6.4 % (4.4-11.3); NEUTROPHILS # (AUTO) 2.6 (2.1-6.9); NEUTROPHILS % 49.2 % (38.7-80.0); PLATELET COUNT 244 x10e3/uL (140-360); RED BLOOD COUNT 3.77 x10e6/uL (4.3-5.7); RED CELL DISTRIBUTION WIDTH 17.5 % (11.7-14.4)
[2020-07-12 05:59] LABS: ALANINE AMINOTRANSFERASE 21 IU/L (0-55); ALBUMIN 3.6 g/dL (3.5-5.0); ALBUMIN/GLOBULIN RATIO 1.6 (0.8-2.0); ALKALINE PHOSPHATASE 29 IU/L (40-150); ANION GAP 12.9 mmol/L (8-16); BLOOD UREA NITROGEN 19 mg/dL (7-26); BUN/CREATININE RATIO 14 (6-25); CALCIUM 7.5 mg/dL (8.4-10.2); CARBON DIOXIDE 30 mmol/L (22-29); CHLORIDE 96 mmol/L (98-107); EST GLOMERULAR FILTRATION RATE > 60 ML/MIN (60-); GLUCOSE 89 mg/dL (74-118); POTASSIUM 3.9 mmol/L (3.5-5.1); SODIUM 135 mmol/L (136-145)
[2020-07-12] MEDS: PANTOPRAZOLE SOD 40 MG TABEC PO SCH (07:30)
[2020-07-12] MEDS: SPIRONOLACTONE 25 MG TAB PO SCH ×2 (09:27→17:41)
[2020-07-12] MEDS: CIPROFLOXACIN 500 MG TAB PO SCH ×2 (09:27→17:41)
[2020-07-12] MEDS: FUROSEMIDE 40 MG TAB PO SCH (09:27)
[2020-07-12] MEDS: CARVEDILOL 12.5 MG TAB PO SCH ×2 (09:27→17:41)
[2020-07-12] MEDS ORDERED: SEVOFLURANE INHAL SOLN 250 ML PEN BTL ONE (12:24)
[2020-07-12] MEDS ORDERED: ATROPINE SULFATE 1 MG/ML VIAL ONE (12:24)
[2020-07-12] MEDS ORDERED: ETOMIDATE 2 MG/ML 10 ML INJ IV ONE (12:24)
[2020-07-12] MEDS ORDERED: ROCURONIUM BROMIDE 10 MG/ML 5ML VIAL IV ONE (12:24)
[2020-07-12] MEDS ORDERED: SUCCINYLCHOLINE CHLORIDE 20 MG/ML 10ML VIAL ONE (12:24)
[2020-07-12] MEDS ORDERED: DEXAMETHASONE SOD PHOS INJ 4 MG/ML VIAL ONE (12:24)
[2020-07-12] MEDS ORDERED: NEOSTIGMINE 1 MG/ML 10ML VIAL ONE (12:24)
[2020-07-12] MEDS ORDERED: EPHEDRINE SULFATE INJ 50 MG/ML VIAL ONE (12:24)
[2020-07-12] MEDS ORDERED: ONDANSETRON HCL INJ 2MG/ML 2ML 2 MG/ML VIAL ONE (12:24)
[2020-07-12] MEDS ORDERED: PHENYLEPHRINE HCL 1% 10 MG/ML VIAL ONE (12:24)
[2020-07-12] MEDS ORDERED: FENTANYL CITRATE/PF 100MCG/2 ML INJ ONE (12:30)
[2020-07-12] MEDS ORDERED: MIDAZOLAM HCL 2 MG/2 ML VIAL ONE (12:30)
[2020-07-12] MEDS ORDERED: BUPIVACAINE 0.25% 30ML SDV ONE (13:30)
[2020-07-12] MEDS ORDERED: MORPHINE SULFATE INJ 4 MG/ML INJ 1ML IV PRN (16:00)
[2020-07-12] MEDS: HYDROCODONE/APAP 5MG-325MG TAB PO PRN (17:41)
[2020-07-13] VITALS (9 sets, daily range): BP systolic 92–123; BP diastolic 66–88
[2020-07-13] MEDS: HYDROCODONE/APAP 5MG-325MG TAB PO PRN ×2 (01:05→05:09)
[2020-07-13] MEDS: DEXTROSE 5%/0.45% SOD CHL 1,000 ML IV SCH ×4 (05:08→21:18)
[2020-07-13] MEDS: METRONIDAZOLE 500 MG TAB PO SCH ×3 (05:09→21:18)
[2020-07-13] MEDS: LEVOTHYROXINE SODIUM 88 MCG TAB PO SCH (05:09)
[2020-07-13 05:27] LABS: BASOPHILS % 0.3 % (0.0-1.0); EOSINOPHILS % 0.1 % (0.0-6.0); HEMATOCRIT 31.9 % (38.2-49.6); HEMOGLOBIN 10.6 g/dL (14.0-18.0); LYMPHOCYTES # (AUTO) 1.4 (1.0-3.2); LYMPHOCYTES % 18.8 % (18.0-39.1); MEAN CORPUSCULAR HEMOGLOBIN 29.6 pg (28-32); MEAN CORPUSCULAR HGB CONC 33.2 g/dL (31-35); MEAN CORPUSCULAR VOLUME 89.1 fL (81-99); MONOCYTES # (AUTO) 0.4 (0.2-0.8); NEUTROPHILS # (AUTO) 5.8 (2.1-6.9); PLATELET COUNT 235 x10e3/uL (140-360); RED BLOOD COUNT 3.58 x10e6/uL (4.3-5.7); RED CELL DISTRIBUTION WIDTH 17.2 % (11.7-14.4)
[2020-07-13 05:43] LABS: ANION GAP 12.1 mmol/L (8-16); BLOOD UREA NITROGEN 18 mg/dL (7-26); BUN/CREATININE RATIO 13 (6-25); CALCIUM 7.6 mg/dL (8.4-10.2); CARBON DIOXIDE 28 mmol/L (22-29); CHLORIDE 96 mmol/L (98-107); CREATININE, SERUM 1.34 mg/dL (0.72-1.25); EST GLOMERULAR FILTRATION RATE > 60 ML/MIN (60-); GLUCOSE 135 mg/dL (74-118); POTASSIUM 4.1 mmol/L (3.5-5.1); SODIUM 132 mmol/L (136-145)
[2020-07-13] MEDS: PANTOPRAZOLE SOD 40 MG TABEC PO SCH (09:11)
[2020-07-13] MEDS: CIPROFLOXACIN 500 MG TAB PO SCH ×2 (09:11→17:24)
[2020-07-13] MEDS: FUROSEMIDE 40 MG TAB PO SCH (09:11)
[2020-07-13] MEDS: SPIRONOLACTONE 25 MG TAB PO SCH ×2 (09:11→17:24)
[2020-07-13] MEDS: CARVEDILOL 12.5 MG TAB PO SCH ×2 (09:11→17:24)
[2020-07-14] MEDS: METRONIDAZOLE 500 MG TAB PO SCH (05:21)
[2020-07-14] MEDS: LEVOTHYROXINE SODIUM 88 MCG TAB PO SCH (05:22)
[2020-07-14 05:32] VITALS: BP 118/84
[2020-07-14 06:18] LABS: BASOPHILS % 0.3 % (0.0-1.0); EOSINOPHILS % 0.7 % (0.0-6.0); HEMATOCRIT 29.7 % (38.2-49.6); HEMOGLOBIN 9.9 g/dL (14.0-18.0); LYMPHOCYTES # (AUTO) 1.8 (1.0-3.2); LYMPHOCYTES % 29.8 % (18.0-39.1); MEAN CORPUSCULAR HEMOGLOBIN 28.9 pg (28-32); MEAN CORPUSCULAR HGB CONC 33.3 g/dL (31-35); MEAN CORPUSCULAR VOLUME 86.8 fL (81-99); MONOCYTES # (AUTO) 0.5 (0.2-0.8); MONOCYTES % 8.8 % (4.4-11.3); NEUTROPHILS # (AUTO) 3.5 (2.1-6.9); NEUTROPHILS % 59.6 % (38.7-80.0); PLATELET COUNT 215 x10e3/uL (140-360); RED BLOOD COUNT 3.42 x10e6/uL (4.3-5.7); RED CELL DISTRIBUTION WIDTH 17.1 % (11.7-14.4)
[2020-07-14 06:40] LABS: ANION GAP 9.1 mmol/L (8-16); BLOOD UREA NITROGEN 15 mg/dL (7-26); BUN/CREATININE RATIO 12 (6-25); CALCIUM 7.3 mg/dL (8.4-10.2); CARBON DIOXIDE 30 mmol/L (22-29); CHLORIDE 96 mmol/L (98-107); CREATININE, SERUM 1.21 mg/dL (0.72-1.25); EST GLOMERULAR FILTRATION RATE > 60 ML/MIN (60-); GLUCOSE 88 mg/dL (74-118); POTASSIUM 4.1 mmol/L (3.5-5.1); SODIUM 131 mmol/L (136-145)
[2020-07-14] MEDS: PANTOPRAZOLE SOD 40 MG TABEC PO SCH (07:30)
[2020-07-14 08:28] VITALS: BP 110/83
[2020-07-14] MEDS: DEXTROSE 5%/0.45% SOD CHL 1,000 ML IV SCH (08:30)
[2020-07-14 08:35] VITALS: BP 110/83
[2020-07-14] MEDS: SPIRONOLACTONE 25 MG TAB PO SCH ×2 (09:00→17:00)
[2020-07-14] MEDS: CARVEDILOL 12.5 MG TAB PO SCH ×2 (09:00→17:00)
[2020-07-14] MEDS: CIPROFLOXACIN 500 MG TAB PO SCH ×2 (09:00→17:00)
[2020-07-14] MEDS: FUROSEMIDE 40 MG TAB PO SCH (09:00)
[2020-07-14 12:13] VITALS: BP 112/74
[2020-07-14] MEDS ORDERED: ONDANSETRON HCL 4 MG ORAL DISINTEGRATING TAB PO PRN (13:15)
[2020-07-14 16:06] VITALS: BP 96/68
== END 2020-07-14 17:34 | disposition home or self-care (01) | DRG 421 ==
LOC: ER 12:58 → ERHOLD 15:18 → MED/SURG2 17:44
PROVIDERS: ADMIT Internal Medicine; ATTEND Internal Medicine
PROC: 0W9G3ZZ Drainage of Peritoneal Cavity, Percutaneous Approach (ICD-10-PCS; 2020-07-06)
PROC: 0W9G3ZZ Drainage of Peritoneal Cavity, Percutaneous Approach (ICD-10-PCS; 2020-07-10)
PROC: 0DBU4ZX Excision of Omentum, Percutaneous Endoscopic Approach, Diagnostic (ICD-10-PCS; 2020-07-12)
PROC: 0WBH4ZX Excision of Retroperitoneum, Percutaneous Endoscopic Approach, Diagnostic (ICD-10-PCS; 2020-07-12)
PROC: 0W9J4ZX Drainage of Pelvic Cavity, Percutaneous Endoscopic Approach, Diagnostic (ICD-10-PCS; principal; 2020-07-12 14:00)
DX: K74.60 Unspecified cirrhosis of liver (principal); R18.8 Other ascites; N17.9 Acute kidney failure, unspecified; E03.9 Hypothyroidism, unspecified; E78.2 Mixed hyperlipidemia; Z91.19 Patient's noncompliance with other medical treatment and regimen; F14.90 Cocaine use, unspecified, uncomplicated; I12.9 Hypertensive chronic kidney disease with stage 1 through stage 4 chronic kidney disease, or unspecified chronic kidney disease; Z20.822 Contact with and (suspected) exposure to COVID-19
CPT/HCPCS: 36415; 49083; 71045; 74177; 74470; 78215; 80048; 80053; 80307; 81001; 82150; 82378; 82550; 82553; 82945; 83615; 83690; 83735; 83880; 84157; 84443; 84484; 85025; 85610; 87070; 87205; 88112; 88305; 88312; 88313; 89051; 93306; 93975; 96361; 97139; 99284; A9541; J0330; J0461; J1100; J1650; J1940; J2250; J2370; J2405; J2710; J3010; J7030; Q9967; U0002

== ENCOUNTER 2020-08-07 12:39 | Emergency (ER) | payer MEDICARE ==
[~2020-08-07] VITALS: Ht 175.3 cm; Wt 78.9 kg
[2020-08-07 14:08] LABS: BASOPHILS % 0.5 % (0.0-1.0); EOSINOPHILS % 0.7 % (0.0-6.0); HEMATOCRIT 35.4 % (38.2-49.6); HEMOGLOBIN 11.7 g/dL (14.0-18.0); LYMPHOCYTES # (AUTO) 1.2 (1.0-3.2); MEAN CORPUSCULAR HEMOGLOBIN 29.6 pg (28-32); MEAN CORPUSCULAR HGB CONC 33.1 g/dL (31-35); MEAN CORPUSCULAR VOLUME 89.6 fL (81-99); MONOCYTES # (AUTO) 0.3 (0.2-0.8); MONOCYTES % 6.4 % (4.4-11.3); NEUTROPHILS # (AUTO) 2.8 (2.1-6.9); NEUTROPHILS % 63.9 % (38.7-80.0); PLATELET COUNT 320 x10e3/uL (140-360); RED BLOOD COUNT 3.95 x10e6/uL (4.3-5.7); RED CELL DISTRIBUTION WIDTH 17.2 % (11.7-14.4)
[2020-08-07 14:17] LABS: INR 0.98; PROTHROMBIN TIME 13.6 seconds (11.9-14.5)
[2020-08-07 14:18] LABS: PARTIAL THROMBOPLASTIN TIME 30.5 seconds (23.8-35.5)
[2020-08-07 14:27] LABS: ALBUMIN 3.3 g/dL (3.5-5.0); ALBUMIN/GLOBULIN RATIO 1.1 (0.8-2.0); ANION GAP 12.1 mmol/L (8-16); CREATININE, SERUM 1.59 mg/dL (0.72-1.25); POTASSIUM 4.1 mmol/L (3.5-5.1)
[2020-08-07] MEDS ORDERED: ALBUMIN 25% 12.5GM 50ML 150 ML IV ONE (15:33)
[2020-08-07] MEDS ORDERED: ALBUMIN 25% 12.5GM 50ML 50 ML IV ONE (16:40)
[2020-08-07 18:18] LABS: BODY FLUID APPEARANCE CLEAR; BODY FLUID COLOR YELLOW; BODY FLUID TYPE PERITONEAL
[2020-08-07 18:19] LABS: RBC,BODY FLUID < 200 cells/uL; WBC,BODY FLUID 216 cells/uL
[2020-08-07 19:50] LABS: LYMPHOCYTES,BODY FLUID 65 %; MONO/MACROPHG,BODY FLUID 22 %; NEUTROPHILS,BODY FLUID 9 %; OTHER CELLS,BODY FLUID 4 %
== END 2020-08-07 18:57 | disposition home or self-care (01) ==
LOC: ER 13:19
DX: R18.8 Other ascites (principal); K74.60 Unspecified cirrhosis of liver; I10 Essential (primary) hypertension; J44.9 Chronic obstructive pulmonary disease, unspecified; I50.9 Heart failure, unspecified; K58.9 Irritable bowel syndrome, unspecified
CPT/HCPCS: 36415; 49083; 74470; 80053; 84157; 85025; 85610; 85730; 86850; 86900; 87070; 87205; 88112; 88305; 89051; 99283; C1729

== ENCOUNTER 2020-08-30 10:06 | Emergency (ER) | payer SELFPAY ==
[~2020-08-30] VITALS: Ht 175.3 cm; Wt 78.9 kg
[2020-08-30 10:55] LABS: BASOPHILS % 0.6 % (0.0-1.0); EOSINOPHILS % 0.3 % (0.0-6.0); HEMATOCRIT 42.8 % (38.2-49.6); HEMOGLOBIN 14.3 g/dL (14.0-18.0); LYMPHOCYTES # (AUTO) 1.8 (1.0-3.2); LYMPHOCYTES % 28.4 % (18.0-39.1); MEAN CORPUSCULAR HEMOGLOBIN 29.5 pg (28-32); MEAN CORPUSCULAR HGB CONC 33.4 g/dL (31-35); MEAN CORPUSCULAR VOLUME 88.2 fL (81-99); MONOCYTES # (AUTO) 0.3 (0.2-0.8); MONOCYTES % 4.7 % (4.4-11.3); NEUTROPHILS % 65.2 % (38.7-80.0); PLATELET COUNT 326 x10e3/uL (140-360); RED BLOOD COUNT 4.85 x10e6/uL (4.3-5.7)
[2020-08-30] MEDS ORDERED: ALBUMIN 25% 12.5GM 50ML 150 ML IV ONE (11:05)
[2020-08-30 11:17] LABS: INR 0.98; PROTHROMBIN TIME 13.6 seconds (11.9-14.5)
[2020-08-30 11:18] LABS: ALBUMIN 3.1 g/dL (3.5-5.0); ALBUMIN/GLOBULIN RATIO 1.1 (0.8-2.0); ANION GAP 14.7 mmol/L (8-16); CALCIUM 7.6 mg/dL (8.4-10.2); CREATININE, SERUM 1.8 mg/dL (0.72-1.25); PARTIAL THROMBOPLASTIN TIME 31.7 seconds (23.8-35.5); POTASSIUM 3.7 mmol/L (3.5-5.1)
[2020-08-30] MEDS ORDERED: ALBUMIN 25% 12.5GM 50ML 50 ML IV ONE (11:36)
[2020-08-30 17:00] VITALS: BP 156/82
== END 2020-08-30 13:31 | disposition home or self-care (01) ==
LOC: ER 10:36
DX: R18.8 Other ascites (principal); K74.60 Unspecified cirrhosis of liver; I10 Essential (primary) hypertension; J44.9 Chronic obstructive pulmonary disease, unspecified; I50.9 Heart failure, unspecified
CPT/HCPCS: 36415; 49083; 71045; 74470; 80053; 83880; 85025; 85610; 85730; 99284

== ENCOUNTER 2020-09-12 07:50 | Emergency (ER) | payer MEDICARE ==
[~2020-09-12] VITALS: Ht 175.3 cm; Wt 78.9 kg
[2020-09-12 08:28] LABS: BASOPHILS % 0.6 % (0.0-1.0); EOSINOPHILS % 0.5 % (0.0-6.0); HEMATOCRIT 37.7 % (38.2-49.6); HEMOGLOBIN 12.7 g/dL (14.0-18.0); LYMPHOCYTES # (AUTO) 1.3 (1.0-3.2); LYMPHOCYTES % 19.6 % (18.0-39.1); MEAN CORPUSCULAR HEMOGLOBIN 29.7 pg (28-32); MEAN CORPUSCULAR HGB CONC 33.7 g/dL (31-35); MEAN CORPUSCULAR VOLUME 88.3 fL (81-99); MONOCYTES # (AUTO) 0.4 (0.2-0.8); MONOCYTES % 5.6 % (4.4-11.3); NEUTROPHILS # (AUTO) 4.8 (2.1-6.9); NEUTROPHILS % 73.2 % (38.7-80.0); PLATELET COUNT 298 x10e3/uL (140-360); RED BLOOD COUNT 4.27 x10e6/uL (4.3-5.7); RED CELL DISTRIBUTION WIDTH 16.3 % (11.7-14.4)
[2020-09-12] MEDS ORDERED: SIMETHICONE 80 MG CHEW PO PRN (08:30)
[2020-09-12 08:49] LABS: INR 0.9; PROTHROMBIN TIME 12.7 seconds (11.9-14.5)
[2020-09-12 08:51] LABS: ALANINE AMINOTRANSFERASE 25 IU/L (0-55); ALBUMIN/GLOBULIN RATIO 1.1 (0.8-2.0); ALKALINE PHOSPHATASE 51 IU/L (40-150); ANION GAP 13.8 mmol/L (8-16); BLOOD UREA NITROGEN 14 mg/dL (7-26); BUN/CREATININE RATIO 10 (6-25); CALCIUM 8.2 mg/dL (8.4-10.2); CARBON DIOXIDE 25 mmol/L (22-29); CHLORIDE 103 mmol/L (98-107); CREATININE, SERUM 1.41 mg/dL (0.72-1.25); EST GLOMERULAR FILTRATION RATE > 60 ML/MIN (60-); GLUCOSE 94 mg/dL (74-118); POTASSIUM 3.8 mmol/L (3.5-5.1); SODIUM 138 mmol/L (136-145)
== END 2020-09-12 09:55 | disposition home or self-care (01) ==
LOC: ER 08:23
DX: R18.8 Other ascites (principal); K74.60 Unspecified cirrhosis of liver; I10 Essential (primary) hypertension; J44.9 Chronic obstructive pulmonary disease, unspecified; I50.9 Heart failure, unspecified
CPT/HCPCS: 36415; 80053; 83690; 84484; 85025; 85610; 93005; 99285